=== PATIENT | female | born 1970 | race Two or more races ===

== ENCOUNTER 2018-09-03 09:12 | Outpatient (CLI) | payer OTHER ==
[~2018-09-03] VITALS: Ht 152.4 cm; Wt 88.0 kg
== END 2018-09-03 09:25 | disposition home or self-care (01) ==
LOC: OFIC 805 09:12
DX: B36.9 Superficial mycosis, unspecified (principal); H60.8X3 Other otitis externa, bilateral; H93.13 Tinnitus, bilateral; H90.3 Sensorineural hearing loss, bilateral

== ENCOUNTER 2019-01-02 21:06 | Emergency (ER) | payer OTHER ==
[~2019-01-02] VITALS: Ht 165.1 cm; Wt 83.0 kg
[2019-01-02] MEDS ORDERED: CIPRO500 MG/5 M (21:33)
== END 2019-01-02 23:44 | disposition home or self-care (01) ==
LOC: ER 21:06
DX: N39.0 Urinary tract infection, site not specified (principal)

== ENCOUNTER 2019-02-09 09:25 | Day surgery (SDC) | payer OTHER ==
[~2019-02-09 09:25] MED LIST: CIPRO500 MG/5 M; LEVOTHYROXINE25 MCG PO
[2019-02-09] MEDS ORDERED: ULTRACET PO (16:16)
[2019-02-09] MEDS ORDERED: PEPCID AC20 MG PO (16:16)
[2019-02-09] MEDS ORDERED: POLY119PG PO (16:16)
== END 2019-02-09 21:10 | disposition home or self-care (01) ==
LOC: CIR.AMB 09:25
DX: K80.10 Calculus of gallbladder with chronic cholecystitis without obstruction (principal); K42.9 Umbilical hernia without obstruction or gangrene; K43.2 Incisional hernia without obstruction or gangrene

== ENCOUNTER 2021-04-26 07:42 | Outpatient (CLI) | payer OTHER ==
[~2021-04-26 07:42] MED LIST changes: +PEPCID AC20 MG PO; +POLY119PG PO; +ULTRACET PO
== END 2021-04-26 07:44 | disposition home or self-care (01) ==
LOC: LAB 07:42
PROVIDERS: ATTEND Internal Medicine
DX: D64.89 Other specified anemias (principal); E11.9 Type 2 diabetes mellitus without complications; N39.0 Urinary tract infection, site not specified; E03.8 Other specified hypothyroidism; E78.00 Pure hypercholesterolemia, unspecified; R19.5 Other fecal abnormalities; R80.8 Other proteinuria; E55.9 Vitamin D deficiency, unspecified; M54.17 Radiculopathy, lumbosacral region

== ENCOUNTER 2021-04-27 12:06 | Outpatient (CLI) | payer OTHER | END 2021-04-27 12:31 | disposition home or self-care (01) | LOC: LAB 12:06 | DX: D64.89 Other specified anemias (principal); E11.9 Type 2 diabetes mellitus without complications; N39.0 Urinary tract infection, site not specified; E03.8 Other specified hypothyroidism; E78.00 Pure hypercholesterolemia, unspecified; Z12.11 Encounter for screening for malignant neoplasm of colon; R19.5 Other fecal abnormalities; R80.8 Other proteinuria; E55.9 Vitamin D deficiency, unspecified ==

== ENCOUNTER 2021-12-12 09:59 | Emergency (ER) | payer OTHER ==
[~2021-12-12] VITALS: Ht 165.1 cm; Wt 88.5 kg
== END 2021-12-12 11:24 | disposition home or self-care (01) ==
LOC: ER 09:59
DX: H66.92 Otitis media, unspecified, left ear (principal); Z91.013 Allergy to seafood